=== PATIENT | female | born 1950 | race Caucasian/White ===

== ENCOUNTER 2020-10-06 14:08 | Inpatient (IN) | payer OTHER ==
[~2020-10-06] VITALS: Ht 147.3 cm; Wt 108.0 kg
[~2020-10-06 14:08] MED LIST: ATORVASTATIN CA80 MG PO; HYDROCODONE-AP1 EAC6 PO; LIDODERM 5%1 PATC1 TRANSDERM; PLAVIX 75 MG TA75 M1 PO; TYLENOL325 MG PO; VITAMIN D35000 UNIT PO
[2020-10-06 14:33] VITALS: BP 180/77
[2020-10-06] MEDS ORDERED: PROAIR HFA8.5 GM INH (14:37)
[2020-10-06] MEDS ORDERED: PLAVIX 75 MG TA75 MG PO (14:37)
[2020-10-06 16:27] LABS: ABSOLUTE BASOPHILS 0.1 thou/uL (0.0-0.2); ABSOLUTE EOSINOPHILS 0.1 thou/uL (0.0-0.7); ABSOLUTE LYMPHOCYTES 1.8 thou/uL (0.8-5.3); ABSOLUTE MONOCYTES 0.7 thou/uL (0.0-1.2); ABSOLUTE NEUTROPHILS 7.1 thou/uL (1.6-8.1); BASOPHILS 1.1 %; EOSINOPHILS 1.4 %; HEMATOCRIT 40.4 % (37.0-47.0); HEMOGLOBIN 13.7 gm/dL (12.0-15.0); LYMPHOCYTES 18.4 %; MCH 28.1 pg (26.0-34.0); MCHC 33.9 g/dL (28.0-37.0); MONOCYTES 6.7 %; MPV 8.8 fl. (7.2-11.1); NUCLEATED RBCS 0 /100WBC; PLATELET COUNT* 295 thou/uL (150-400); POLYS 72.4 %; RBC 4.87 mil/uL (4.20-5.00); RDW-CV 14.2 % (10.5-14.5); WBC 9.8 thou/uL (4.0-11.0)
[2020-10-06 16:33] LABS: CALCIUM 8.8 mg/dL (8.5-10.1); CREATININE 0.8 mg/dL (0.6-1.3); POTASSIUM 3.7 mmol/L (3.5-5.1)
[2020-10-06 16:44] LABS: ALBUMIN 3.2 g/dL (3.4-5.0); TOTAL BILIRUBIN 0.6 mg/dL (<0.1-1.0); TOTAL PROTEIN 7.9 g/dL (6.4-8.2)
[2020-10-06 17:01] LABS: URINE BILIRUBIN NEGATIVE (Negative); URINE BLOOD NEGATIVE (Negative); URINE CLARITY CLOUDY; URINE COLOR YELLOW; URINE GLUCOSE-RANDOM NEGATIVE (Negative); URINE KETONES TRACE (Negative); URINE LEUKOCYTES-REFLEX 1+ (Negative); URINE NITRITE-REFLEX POSITIVE (Negative); URINE PROTEIN NEGATIVE (Negative); URINE SPECIFIC GRAVITY 1.025 (1.005-1.030)
--- NOTE | 2020-10-06 17:06 | NUR ---
BACK FROM CT AT THIS TIME.
[2020-10-06 17:29] LABS: BACTERIA-REFLEX >30 Many /HPF (None Seen); CASTS None Seen /LPF (None Seen); CRYSTALS None Seen /LPF (None Seen); MUCUS 0-3 Light strn/LPF (None Seen); SQUAMOUS 4-10 Moderate /LPF (0-3); URINE RBC 0-2 Rare /HPF (0-2); WBC CLUMPS Few (None Seen)
[2020-10-06 20:00] VITALS: BP 168/87
[2020-10-06 20:40] VITALS: BP 141/60
[2020-10-06 21:00] VITALS: BP 168/67
[2020-10-06 21:18] VITALS: BP 181/71
[2020-10-06 23:56] VITALS: BP 146/68
[2020-10-07 04:00] VITALS: BP 147/66
--- NOTE | 2020-10-07 05:24 | NUR ---
RECEIVED REPORT FROM ED RN. PT TRANSFERRED TO 103. PT A&OX4. VSS. ADMISSION HISTORY & PHYSICAL ASSESSMENT COMPLETED AND CHARTED. PT ON RA. PT TRACING SR ON TELE. PT UP WITH 1 ASSIST TO BSC. PT COMPLAINED OF HEADACHE-MED GIVEN PER MAY. NIH CHARTED. FALL PRECAUTIONS IN PLACE. CALL LIGHT WITHIN REACH.
[2020-10-07 05:26] LABS: HEMATOCRIT 39.7 % (37.0-47.0); HEMOGLOBIN 13.2 gm/dL (12.0-15.0); MCH 27.5 pg (26.0-34.0); MCHC 33.1 g/dL (28.0-37.0); MCV 82.9 fL (80.0-100.0); MPV 8.8 fl. (7.2-11.1); RBC 4.79 mil/uL (4.20-5.00); RDW-CV 14.8 % (10.5-14.5); WBC 7.5 thou/uL (4.0-11.0)
[2020-10-07 05:52] LABS: CALCIUM 8.6 mg/dL (8.5-10.1); CREATININE 0.7 mg/dL (0.6-1.3); POTASSIUM 3.3 mmol/L (3.5-5.1)
[2020-10-07 08:00] VITALS: BP 148/62
--- NOTE | 2020-10-07 09:50 | EKG ---
[place] [address] ELECTROCARDIOGRAM REPORT Name: GHANSHYAMCONRAD OSBORNE Marino Room: [address] ADM IN .R.#: [id number] Admission: 10/06/20 Attend Phys: Nico Guerin Discharge: Date of : 48 Date of Service: 10/06/20 1548 Report #: [id number] THIS REPORT FOR: //name// [facility] ED Test Date: 2020-10-06 Test Time: 15:48:11 Pat Name: CONRAD MORRISSEY Department: Room: [facility] Gender: F Heating Repair Technician: YIFAN : 1950 Requested By: Juan Duran Order Number: [id number] MD: Lucio Fonseca Measurements Intervals [place] Rate: 63 P: 40 MN: 158 QRS: 11 QRSD: 122 T: 17 QT: 438 QTc: 449 Interpretive Statements Sinus rhythm Baseline wander in lead(s) V5 Compared to ECG 02/17/2015 11:40:58 No prior tracing for comparison Electronically Signed On 10-07-2020 9:49:54 CDT by Lucio Fonseca [email or web address] <ELECTRONICALLY SIGNED> By: Lucio Fonseca MD, FACC 10/07/20 0949 1548 1548 Lucio Fonseca MD, [facility] /EPI
[2020-10-07 11:50] VITALS: BP 148/60
--- NOTE | 2020-10-07 13:24 | NUR ---
Pt is A&O. Resides at home with dtr. Dtr assists as needed. Pt has a walker for mobility. Hx of falls. Hx CVA. Hx of ARU. No hx of HH or SNF. Pt's goal is home at dc. Therapies to eval, await therapy recs for safe dc plan. Neuro consulted. Pending UA, on Ivabx. Anticipate dc in a few days.
[2020-10-07 15:15] VITALS: BP 155/48
--- NOTE | 2020-10-07 17:52 | NUR ---
RECEIVED REPORT AROUND 0715. ASSUMED CARE. VS AND ASSESSMENT CHARTED. IV INTACT. HEART MONITOR ATTACHED AT SR/SB. MEDS GIVEN PER MAY. HOURLY ROUNDING PERFORMED. FAMILY AT BEDSIDE. PT/OT WORKED WITH PT. MOVED ROOMS THIS SHIFT. ALL BELONGINGS MOVED TO NEW ROOM. CALL LIGHT WITH IN REACH. WILL CONTINUE TO MONITOR.
[2020-10-07 20:00] VITALS: BP 148/62
[2020-10-08] VITALS (7 sets, daily range): BP systolic 127–169; BP diastolic 55–77
--- NOTE | 2020-10-08 03:27 | NUR ---
ASSUMED CARE OF PT AFTER REPORT AT 1930. PT A&OX4. VSS PHYSICAL ASSESSMENT COMPLETED AND CHARTED. PT ON RA. PT TRACING SR ON TELE. PT UP WITH 1 ASSIST TO BSC. PT DENIES ANY PAIN. NIH CHARTED. FALL PRECAUTIONS IN PLACE. CALL LIGHT WITHIN REACH.
[2020-10-08] MEDS ORDERED: CEFDINIR300 MG PO (11:11)
[2020-10-08 12:20] LABS: CHOLESTEROL 222 mg/dL (<200); HDL CHOLESTEROL 41 mg/dL (>40); LDL CHOLESTEROL 163 mg/dL (<100); TC:HDL 5.4 Ratio (Not establshd); TRIGLYCERIDE 93 mg/dL (<150); VLDL 19 mg/dL (<40)
[2020-10-08 12:23] LABS: SERUM ASSESSMENT Clear
--- NOTE | 2020-10-08 13:49 | NUR ---
Pt discharging to home today. Declines HH. Pt to have ARU consult and lipid panel drawn prior to dc. Dtr will picker tender helper and transport home.
--- NOTE | 2020-10-08 15:40 | CON ---
[address] [address] CONSULTATION Name: CONRAD MORRISSEY Room: [address] IN M.R.#: [id number] Admission: 10/06/20 Attend Phys: Jennifer Lackey Discharge: Date of : 48 Report #: [id number] THIS REPORT FOR: cc: Juan Manuel Mar MD, K. Gay MD Khosla, Parveen K. MD ~ DATE OF CONSULTATION: 10/07/2020 HISTORY OF PRESENT ILLNESS: This is a 70-year-old female patient who was evaluated by me because she had some dizziness yesterday. This started spontaneously without any trauma and in fact improved to some extent after that. There was some question of incoordination, which was noticed by this patient and even some facial weakness was noticed. 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 I do not have any records in that regard. REVIEW OF SYSTEMS: Positive for stroke in the past. She said she has weakness and numbness on the left side since 2014 after a stroke. I reviewed the CT scan here in 2014 and that has showed a left-sided lacunar CVA at that time. She said she was in [facility] first then she was transferred to [facility] and then she was transferred here for rehabilitation, I do not have any of those records in this patient. She did have a CT angio of the head and neck in the Emergency Room and that appeared to be showing an aneurysm. During this admission, it looks like this patient also has a UTI. She denies any anxiety, but she does not look anxious. She does not know what this stroke was from. She denies any ENT, cardiac, respiratory symptoms. She did have some nausea, vomiting when it happened, but she is better now. She does have a UTI. There is no musculoskeletal, constitutional, dermatological, hematological, psychiatric, throat, allergic symptom associated with present symptomatology. PAST MEDICAL HISTORY: Positive for stroke it cause mostly the numbness she says it involved the face, left upper and left lower extremity. On the CT scan, we do not show anything which can correlate with the patient's symptoms on the left side. FAMILY HISTORY: Unremarkable. SOCIAL HISTORY: She lives with her son, but she says she is able to do most of the things by herself. Son does have to fix supper for this patient. PHYSICAL EXAMINATION: She has no edema. She is obese. Her hearing and vision looks adequate. There is no vascular insufficiency in the lower extremities and pulses are present. Cardiac examination is unremarkable. Respiratory examination is unremarkable. No carotid bruit [place] [phone] CONSULTATION Name: CONRAD MORRISSEY Room: [address] IN [facility]#: [id number] Admission: 10/06/20 Attend Phys: Jennifer Lackey Discharge: Date of : 48 Report #: [id number] noticed. Blood pressure 148/60, respirations 17, pulse is 63, temperature is 97.2. GFR is good at 82. CTA was reviewed, which showed an aneurysm. IMPRESSION: Status post cerebrovascular accident in 2015 with left-sided numbness. There is no CT correlate for her symptoms because stroke is also in the left basal ganglia. I will get an MRI done in this patient to evaluate that further. We also need an MRI because she described this symptom where she had some ptosis, some vertigo, some nausea, some question of a right facial weakness, which does not appear to be present now and is as per notes from the [facility] done in the Emergency Room. 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 If MRI does not show any brainstem pathology, I will suggest getting an appointment with some interventional radiologist at [facility]. I discussed that aspect with the patient and she wants to follow the above plan. I think it is best to continue with systemic treatment of acute UTI. She does have multiple chronic problems like numbness in the left side that need to be further evaluated until the MRI shows something which can correlate with the patient's symptoms that should be done as an outpatient because this is going on for 2014. Thank you very much for this referral and if you have any questions, please feel free to contact me. <ELECTRONICALLY SIGNED> By: Karri Owens MD 10/08/20 1540 1235 2032Pjos Owens MD /mahesh
--- NOTE | 2020-10-08 17:21 | NUR ---
PATIENT DISCHARGED AT THIS TIME VIA WHEELCHAIR, ACCOMPANIED BY DAUGHTER AND NURSE TECH. IV DC'D, COTTON AND BANDAID PLACED TO SITE. PERSONAL BELONGINGS GATHERED AND SENT HOME WITH PATIENT. DISCHARGE INSTRUCTIONS REVIEWED AT THIS TIME, ALL QUESTIONS AND CONCERNS DISCUSSED. PATIENT ACKNOWLEDGED UNDERSTANDING.
--- NOTE | 2020-10-09 09:02 | NUR ---
I have reviewed the documentation by SANDOVAL SYLVESTER from 10/08/20 to 10/09/20 and I concur with it. YASMEEN TOUSSAINT
== END 2020-10-08 17:15 | disposition home or self-care (01) | DRG 65 ==
LOC: M.ERS 14:08 → M.ORTHSURG 17:18 → M.TBA-ER 17:18 → M.ORTHSURG 21:08 → M.2W 10-07 17:40
PROVIDERS: Emergency Medicine Emergency Medical Services; Family Medicine; ADMIT Internal Medicine; ATTEND Internal Medicine
DX: I63.89 Other cerebral infarction (principal); N39.0 Urinary tract infection, site not specified; I69.354 Hemiplegia and hemiparesis following cerebral infarction affecting left non-dominant side; Z68.42 Body mass index [BMI] 45.0-49.9, adult; R26.81 Unsteadiness on feet; E66.01 Morbid (severe) obesity due to excess calories; I10 Essential (primary) hypertension; B96.20 Unspecified Escherichia coli [E. coli] as the cause of diseases classified elsewhere; E78.5 Hyperlipidemia, unspecified; Z20.822 Contact with and (suspected) exposure to COVID-19; Z90.49 Acquired absence of other specified parts of digestive tract; Z90.710 Acquired absence of both cervix and uterus; Z79.01 Long term (current) use of anticoagulants; Z79.899 Other long term (current) drug therapy; Z88.2 Allergy status to sulfonamides; Z88.8 Allergy status to other drugs, medicaments and biological substances; Z88.5 Allergy status to narcotic agent; Z91.013 Allergy to seafood